=== PATIENT | female | born 1955 | race Caucasian/White ===

== ENCOUNTER 2017-08-09 22:13 | Emergency (ER) | payer OTHER ==
[2017-08-09 22:13] VITALS: BMI 41.1
[2017-08-09] MEDS ORDERED: Oxycodone/Acetaminophen 5/325 mg Tab PO STA (22:46)
--- NOTE | 2017-08-09 22:47 | C.PDOC ---
History Of Present Illness 62 year old female with a Hx of HTN and diabetes presents to the ER with a complaint of chest wall pain for the past 4 days. Patient states the pain worsens with movement, coughing, and deep inspiration. Patient reports she fell and landed on her chest 5 days ago, she notes she heard a "crack" when she landed. Denies fever, chills, productive cough, or SOB. Chief Complaint (Nursing): Chest Pain History Per: Patient History/Exam Limitations: no limitations Onset/Duration Of Symptoms: Days Current Symptoms Are (Timing): Still Present Quality: "Pain" Associated Symptoms: denies: Nausea, Dyspnea, Diaphoresis, Syncope Modifying Factors: None Exacerbating Factors: Turning, Movement, Deep Breathing Alleviating Factors: None Recent travel outside of the [place]: No Past Medical History Reviewed: Historical Data, Nursing Documentation, Vital Signs Vital Signs: Last Vital Signs Temp 98 F 08/09/17 23:54 Pulse 61 08/09/17 23:54 Resp 16 08/09/17 23:54 BP 116/65 08/09/17 23:54 Pulse Ox 96 08/09/17 23:54 - Medical History PMH: Arthritis, Diabetes, Gall Bladder Disease, HTN, Osteoporosis, Peripheral Edema Surgical History: Cholecystectomy - [facility] Procedures COLONOSCOPY (10/04/14) IMMOBILIZ/WOUND ATTN NEC (11/05/14) INJECT/INFUSE NEC (11/05/14) 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) Family History: States: Unknown Family Hx - Social History Hx Tobacco Use: No Hx Alcohol Use: No Hx Substance Use: No - Immunization History Hx Tetanus Toxoid Vaccination: No Hx Influenza Vaccination: No Hx Pneumococcal Vaccination: No Review Of Systems Constitutional: Negative for: Fever, Chills Respiratory: Negative for: Cough, Shortness of Breath, Sputum Musculoskeletal: Positive for: Other (Chest wall pain) Physical Exam - Physical Exam Appears: Non-toxic, No Acute Distress Skin: Normal Color, Warm, Dry Head: Atraumatic, Normacephalic Eye(s): bilateral: Normal Inspection Oral Mucosa: Moist Neck: Normal, No Midline Cervical Tenderness, No Paracervical Tenderness, Supple Chest: Symmetrical, Tenderness (Diffuse chest wall to upper ribs 3-4 at midclavicular line and over clavicle.) Cardiovascular: Rhythm Regular Respiratory: Normal Breath Sounds, No Rales, No Rhonchi, No Wheezing Gastrointestinal/Abdominal: Soft, No Tenderness Back: No Vertebral Tenderness, No Paraspinal Tenderness Extremity: Normal ROM (x4), Tenderness (On palpation of humeral head) Neurological/Psych: Oriented x3, Normal Speech ED Course And Treatment O2 Sat by Pulse Oximetry: 98 - Radiology CXR: Interpreted by Me, Viewed By Me CXR Interpretation: No: Fracture, Pnemothorax, Other (Hemothorax, Bony abnormalities) Medical Decision Making Medical Decision Making: CXR ordered. Percocet administered. Disposition - Disposition Disposition: HOME/ ROUTINE Disposition Time: 00:51 Condition: GOOD Prescriptions: Acetaminophen/Hydrocodone Bi [Vicodin 300 mg-5 mg] 1 tab PO QID PRN #12 tab PRN Reason: Pain, Mild (1-3) Instructions: Hydrocodone/Acetaminophen (By mouth), Rib Contusion (ED) Forms: Gen Discharge Inst Telugu, [employer] [facility] (Sierra Leonean) Print Language: ROMANSH - Clinical Impression Clinical Impression: Chest wall injury - Scribe Statement The provider has reviewed the documentation as recorded by the Scribchen Gomes All medical record entries made by the Scribe were at my direction and personally dictated by me. I have reviewed the chart and agree that the record accurately reflects my personal performance of the history, physical exam, medical decision making, and the department course for this patient. I have also personally directed, reviewed, and agree with the discharge instructions and disposition.
[2017-08-09] MEDS ORDERED: Oxycodone/Acetaminophen 5/325 mg Tab ONE (22:51)
[2017-08-09 23:55] VITALS: BP 116/65; PULSE 61; RESP 16; TEMP 98
[2017-08-10 00:52] VITALS: O2SAT 98
--- NOTE | 2017-08-10 08:06 | RAD ---
PROCEDURE: Radiographs of the Chest and Left Ribs. HISTORY: blunt trauma COMPARISON: Comparison is made to 11/20/2016. TECHNIQUE: Frontal radiograph of the chest and multiple oblique radiographs of the left ribs were obtained. FINDINGS: LEFT RIBS: No fracture or focal lesion visualized. LUNGS: Clear. PLEURA: No pneumothorax or pleural fluid. CARDIOVASCULAR: Normal sized heart. No pulmonary vascular congestion. OTHER FINDINGS: None. IMPRESSION: Unremarkable radiographs of the chest and left ribs. No left rib fracture.
--- NOTE | 2017-08-13 11:33 | CARD ---
APPROVED REPORT EKG Measurement Heart [id number] ID [id number] <Conclusion> Normal sinus rhythm Normal ECG
== END 2017-08-10 00:03 | disposition home or self-care (01) ==
LOC: C.ER 22:13
DX: S29.9XXA Unspecified injury of thorax, initial encounter (principal); W18.39XA Other fall on same level, initial encounter; Y93.01 Activity, walking, marching and hiking; Y92.410 Unspecified street and highway as the place of occurrence of the external cause

== ENCOUNTER 2017-10-19 16:52 | Emergency (ER) | payer OTHER ==
[2017-10-19 16:52] VITALS: BMI 41.1
[2017-10-19 17:12] VITALS: BP 145/81; PULSE 65; RESP 16; TEMP 97.6; O2SAT 98
[2017-10-19] MEDS ORDERED: Lidocaine 5% Patch TD STA (18:44)
[2017-10-19] MEDS ORDERED: Lidocaine 5% Patch TD ONE (18:52)
[2017-10-19 19:28] LABS: URINE BILIRUBIN NEGATIVE (NEGATIVE); URINE BLOOD NEGATIVE (NEGATIVE); URINE CLARITY Clear (Clear); URINE COLOR Straw (YELLOW); URINE GLUCOSE (UA) 3+ mg/dL (Normal); URINE LEUKOCYTE ESTERASE NEG Leu/uL (Negative); URINE NITRATE NEGATIVE (NEGATIVE); URINE PROTEIN NEGATIVE (NEGATIVE); URINE UROBILINOGEN NORMAL mg/dL (0.2-1.0)
--- NOTE | 2017-10-19 19:47 | C.PDOC ---
History Of Present Illness 62 year old female, whose PMHx includes DM and HTN, presents to the ED for evaluation of bilateral lower back pain that radiates to her legs. Patient has been taking Motrin twice/day without relief. Patient states she cannot take Tylenol because she has liver problems. She states her pain is worse with movement. Patient has not been evaluated by PMD. She states she wants a "shot" and denies fever, chills, urinary/bowel incontinence, dysuria, urinary frequency , extremity numbness/weakness. Time Seen by Provider: 10/19/17 17:57 Chief Complaint (Nursing): Back Pain History Per: Patient History/Exam Limitations: no limitations Onset/Duration Of Symptoms: Days Current Symptoms Are (Timing): Still Present Quality Of Discomfort: "Pain" Previous Symptoms: Back Pain Associated Symptoms: denies: Incontinence, New Weakness, New Numbness Exacerbating Factor(s): Movement Additional History Per: Patient Past Medical History Reviewed: Historical Data, Nursing Documentation, Vital Signs Vital Signs: Last Vital Signs Temp 97.6 F 10/19/17 17:10 Pulse 65 10/19/17 17:10 Resp 16 10/19/17 17:10 BP 145/81 10/19/17 17:10 Pulse Ox 98 10/21/17 22:54 - Medical History PMH: Arthritis, Diabetes, Gall Bladder Disease, HTN, Osteoporosis, Peripheral Edema Denies: Chronic Kidney Disease Surgical History: Cholecystectomy - [facility] Procedures COLONOSCOPY (10/04/14) IMMOBILIZ/WOUND ATTN NEC (11/05/14) INJECT/INFUSE NEC (11/05/14) 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) Family History: States: Unknown Family Hx - Social History Hx Tobacco Use: No Hx Alcohol Use: No Hx Substance Use: No - Immunization History Hx Tetanus Toxoid Vaccination: No Hx Influenza Vaccination: No Hx Pneumococcal Vaccination: No Review Of Systems Constitutional: Negative for: Fever, Chills Genitourinary: Negative for: Incontinence Musculoskeletal: Positive for: Back Pain, Leg Pain Neurological: Negative for: Weakness, Numbness Physical Exam - Physical Exam Appears: Non-toxic, Other (elderly female, uncomfortable ) Skin: Normal Color, Warm, Dry Head: Atraumatic, Normacephalic Ear(s): Left: TM Obscured By Wax Neck: Supple Chest: Symmetrical, No Deformity, No Tenderness Cardiovascular: Rhythm Regular, No Murmur Respiratory: Normal Breath Sounds, No Rales, No Rhonchi, No Wheezing Gastrointestinal/Abdominal: Soft, No Tenderness, No Guarding, No Rebound Back: No Vertebral Tenderness, Paraspinal Tenderness (lumbar, bilaterally ) Extremity: Normal ROM, No Tenderness, Capillary Refill (less than 2 seconds ), No Swelling Neurological/Psych: Oriented x3, Normal Speech, Normal Cognition, Normal Motor, Normal Sensation Gait: Steady ED Course And Treatment O2 Sat by Pulse Oximetry: 98 Medical Decision Making Medical Decision Making: pt received toradol and lido derm patch. will d/c home with lidoderm and recommend physical therapy and pain management, Disposition - Disposition Referrals: Cornelio Vega MD [Staff Provider] - Disposition: HOME/ ROUTINE Disposition Time: 19:52 Condition: STABLE Additional Instructions: Steven un seguimiento con garrison mdico la prxima semana. Recomendamos que obtenga tony referencia para fisioterapia. Sugiera tambin que steven un seguimiento del manejo del dolor. Leando medicamentos en casa yumi recetados. Qutese el parche en 12 horas. Use otros parches yumi se indica. No deje ningn parche encendido por ms de 12 horas. Si no puede obtener los parches, intente con aspercream. . Follow up with your medical doctor next week. Recommend you get a referral for physical therapy. Also suggest that you follow up with pain management. Take medicatins at home as prescrbied. Take patch off in 12 hours. Use other patches as directed. Do not leave any patch on for more than 12 hours. If you can't get the patches then try aspercream. Prescriptions: Lidocaine 5% [Lidoderm] 1 ea TD DAILY #6 patch Instructions: Low Back Pain in Adults Forms: [facility] (Spanish) Print Language: BELARUSIAN - Clinical Impression Clinical Impression: Low back pain
== END 2017-10-19 20:03 | disposition home or self-care (01) ==
LOC: C.ER 16:52
DX: M54.5 Low back pain (principal)
CPT/HCPCS: 81001; 96372; 99284; J1885